=== PATIENT | female | born 1990 ===

== ENCOUNTER 2024-10-05 09:24 | Day surgery (SDC) | payer OTHER ==
[2024-10-05] VITALS (19 sets, daily range): BP systolic 87–122; BP diastolic 53–77
[~2024-10-05] VITALS: Ht 157.5 cm; Wt 76.2 kg
[~2024-10-05 09:24] MED LIST: ABILIFY MYCITE2 M2 PO; Aldactone50 MG PO; Dexamethasone Sod Phos 10 MG/ML 1ML VIAL ONE; FentaNYL Citrate 50 MCG/ML 5 ML Injection ONE; INDERAL XL80 MG PO; Ketorolac Tromethamine 30mg Vial ONE; MERIBIN5 MG PO; Ondansetron HCl 2 MG / ML 2ML Vial ONE; Rocuronium Bromide 10 MG/ML 5ML Injection IV ONE; SERT100 PO; SERT25 PO; Sugammadex Sodium 200 MG/2ML SDV (100 MG/ML) ONE; TOPI50 PO; propofoL 20 ML IV ONE
[2024-10-05] MEDS ORDERED: Lactated Ringer's 1,000 ML IV SCH ×2 (09:50→17:15)
[2024-10-05] MEDS ORDERED: CeFAZolin Sodium 2,000 MG in NS 100 ML IV SCH ×2 (10:00→20:00)
[2024-10-05] MEDS ORDERED: Bupivacaine 0.5% W/EPI 1:200000 SDV 30 ML Vial ONE (13:44)
[2024-10-05] MEDS ORDERED: Bupivacaine 0.5% Inj 10 ML Vial ONE (16:39)
[2024-10-05] MEDS ORDERED: OxyCODONE 5 mg/Acetamin 325 mg TABLET PO PRN (17:10)
[2024-10-05] MEDS ORDERED: FLU VACC TS2024-25(6MOS UP)/PF 45 MCG/0.5 ML SYRINGE IM PRN (17:10)
[2024-10-05] MEDS ORDERED: Ondansetron 4 MG TAB PO PRN (17:10)
[2024-10-05] MEDS ORDERED: DiphenhydrAMINE HCL 25 MG Cap PO PRN (17:10)
[2024-10-05] MEDS ORDERED: Promethazine HCl 25 MG Tab PO PRN (17:15)
[2024-10-05] MEDS ORDERED: Promethazine HCl 12.5 MG Supp PR PRN (17:15)
[2024-10-05] MEDS ORDERED: Ondansetron HCl 2 MG / ML 2ML Vial IV PRN (17:15)
[2024-10-05] MEDS ORDERED: Naloxone HCl 0.4MG / ML 1ML Vial IV PRN (17:15)
[2024-10-05] MEDS ORDERED: Simethicone 80 MG Chew PO PRN (17:15)
[2024-10-05] MEDS ORDERED: HYDROmorphone HCl/Pf 1MG SYR IV PRN (17:25)
[2024-10-05] MEDS ORDERED: Ketorolac Tromethamine 30mg Vial IV PRN (17:25)
[2024-10-05] MEDS ORDERED: HYDROmorphone HCl/Pf 1MG SYR ONE (17:46)
--- NOTE | 2024-10-05 18:54 | NUR ---
PT ARRIVED TO RM 213 FROM PACU IN [facility] TRANSFERRED PT TO BED FROM [facility]. ORIENTED TO CALL LIGHT AND ADVISED PT TO NOT GET UP WITHOUT ASSISTANCE FOR FALL PREVENTION. WATER AND SNACKS PROVIDED. KPAD PROVIDED FOR COMFORT. PT HAS ABDOMINAL BINDER ON. VSS. SPOUSE BEDSIDE. CALL LIGHT IN REACH.
[2024-10-05] MEDS ORDERED: Topiramate 25 MG Tab PO SCH (21:00)
[2024-10-05] MEDS ORDERED: Spironolactone 50 MG Tab PO SCH (21:00)
[2024-10-05] MEDS ORDERED: Propranolol HCL 80 MG CAPCR PO SCH (21:10)
[2024-10-05] MEDS ORDERED: Sertraline HCl 50 MG Tab PO SCH (21:15)
[2024-10-05] MEDS ORDERED: Sertraline HCl 100 MG Tab PO SCH (21:20)
[2024-10-05] MEDS ORDERED: ARIPiprazole 2 MG Tablet PO SCH (22:00)
[2024-10-05] MEDS ORDERED: NS 500 ML IV ONE (23:15)
--- NOTE | 2024-10-05 23:15 | NUR ---
SPOKE WITH DR WONDERLY REGARDING VS BEING SYSTOLIC LESS THAN 100. REVIEWED OTHER VS AND [employer]Y CENTER ASSOCIATE RN NOTES ASSESSMENT OTHERWISE BENIGN.DR ORDERED 500 ML NS IV BOLUS.
[2024-10-06 00:20] VITALS: BP 93/59
[2024-10-06 02:21] VITALS: BP 93/61
[2024-10-06 05:39] VITALS: BP 91/54
[2024-10-06 06:26] LABS: BASOPHILS ABSOLUTE AUTO 0.06 K/mm3 (0.00-0.23); BASOPHILS PERCENT AUTO 0 % (0-2); EOSINOPHILS ABSOLUTE AUTO 0.03 K/mm3 (0.00-0.68); EOSINOPHILS PERCENT AUTO 0 % (0-6); Hematocrit 34.2 % (33.0-51.0); Hemoglobin 11.1 g/dL (11.5-16.0); IMMATURE GRAN ABSOLUTE AUTO 0.06 K/mm3 (0.00-0.10); IMMATURE GRAN PERCENT AUTO 0 % (0-1); LYMPHOCYTES ABSOLUTE AUTO 3.72 K/mm3 (0.84-5.20); LYMPHOCYTES PERCENT AUTO 26 % (21-46); MONOCYTES ABSOLUTE AUTO 0.59 K/mm3 (0.16-1.47); MONOCYTES PERCENT AUTO 4 % (4-13); Mean Corpuscular HGB 28.3 pg (26.0-34.0); Mean Corpuscular HGB Conc 32.5 g/dL (31.5-36.5); Mean Corpuscular Volume 87 fL (80-100); Mean Platelet Volume 9.2 fL (9.1-12.4); NEUTROPHILS ABSOLUTE AUTO 10.12 K/mm3 (1.96-9.15); NEUTROPHILS PERCENT AUTO 70 % (41-73); Platelet Count 338 K/mm3 (150-400); RDW Coefficient Variation 12.6 % (11.7-14.2); RDW Standard Deviation 40.1 fL (35.1-46.3); Red Blood Cell Count 3.92 M/mm3 (3.80-5.20); White Blood Cell Count 14.58 K/mm3 (4.00-11.30)
[2024-10-06 07:19] VITALS: BP 92/53
--- NOTE | 2024-10-06 08:01 | NUR ---
SHIFT SUMMARY NOC. PT POD 1 FOR ROBOTIC LAP HYSTERECTOMY. LAP SITES X4 ON ABDOMEN C/D/I. PT A/O X4 BUT DOWSY. PT'S BP IN THE 90S SYSTOLIC, MAP ABOVE 65. WONDERLY NOTIFIED BY CREMATOR AND NEW ORDERS RECEIVED FOR FLUID BOLUS. PT HAD SANG BLOOD WITH WIPING AFTER FIRST VOID. NO BLEEDING AFTER AND VOIDING CLEAR YELLOW URINE THIS AM. ABD BINDER IN PLACE. PT TOLERATING JELLO AND CRACKERS. PT VERY PAINFUL AND TEARFUL AROUND 0130, MEDICATED FOR PAIN WITH REPORTED RELIEF. MAKES NEEDS KNOWN, CALL LIGHT IN REACH.
[2024-10-06] MEDS ORDERED: Propranolol HCL 80 MG CAPCR PO SCH (09:00)
[2024-10-06] MEDS ORDERED: Sertraline HCl 50 MG Tab PO SCH (09:00)
[2024-10-06] MEDS ORDERED: ARIPiprazole 2 MG Tablet PO SCH (09:00)
[2024-10-06] MEDS ORDERED: Sertraline HCl 100 MG Tab PO SCH (09:00)
[2024-10-06 11:44] VITALS: BP 94/56
[2024-10-06] MEDS ORDERED: SIME80CH PO (11:55)
[2024-10-06] MEDS ORDERED: PROM25 PO (11:55)
[2024-10-06] MEDS ORDERED: Percocet 5-3251 EACH PO (11:57)
--- NOTE | 2024-10-06 13:15 | NUR ---
DISCHARGE PT PROVIDED WITH WRITTEN AND VERBAL DISCHARGE INSTRUCTIONS, SHE AND HER SPOUSE REPORTED UNDERSTANDING. PAIN MANAGED AT TIME OF DISCHARGE. WONDERLY NOTIFIED OF SOFT BP AND THAT PT REPORTS THIS SYSTOLIC IN THE 90'S IS HER BASELINE, PT ASYMPTOMATIC. PER DR. JACK OK TO CONTINUE WITH DISCHARGE. PT MET ALL GOALS PRIOR TO DISCHARGE, SHE WAS ABLE TO VOID, TOLERATE PO, AMBULATE, PASS FLATUS AND PAIN MANAGED. PT ASSISTED OUT IN W/C AT APPROXIMATELY 1220.
== END 2024-10-06 12:21 | disposition home or self-care (01) ==
LOC: ORSCMMR 09:24 → SURS 18:24 → ORSCMMR 10-06 07:30 → ORD 10-06 07:30 → ORSCMMR 10-06 12:21
PROVIDERS: Obstetrics & Gynecology
PROC: 0UT74ZZ Resection of Bilateral Fallopian Tubes, Percutaneous Endoscopic Approach (ICD-10-PCS; principal; 2024-10-05 12:30)
PROC: 0U5F4ZZ Destruction of Cul-de-sac, Percutaneous Endoscopic Approach (ICD-10-PCS; principal; 2024-10-05 12:30)
PROC: 0UT94ZZ Resection of Uterus, Percutaneous Endoscopic Approach (ICD-10-PCS; principal; 2024-10-05 12:30)
DX: N92.1 Excessive and frequent menstruation with irregular cycle (principal); N70.11 Chronic salpingitis; N83.8 Other noninflammatory disorders of ovary, fallopian tube and broad ligament; N94.12 Deep dyspareunia; N94.6 Dysmenorrhea, unspecified; D25.9 Leiomyoma of uterus, unspecified; F41.9 Anxiety disorder, unspecified; F17.290 Nicotine dependence, other tobacco product, uncomplicated; Z79.899 Other long term (current) drug therapy
CPT/HCPCS: 36415; 85025; 86850; 86900; 86901; 88307; A9270; J0690; J1100; J1171; J1885; J2405; J2704; J3010; J7040; J7120